=== PATIENT | male | born 1965 | race Caucasian/White ===

== ENCOUNTER 2020-10-12 10:23 | Day surgery (SDC) | payer OTHER ==
[~2020-10-12] VITALS: Ht 180.3 cm; Wt 136.3 kg
[~2020-10-12 10:23] MED LIST: HYDROmorphone 2 MG/ML VIAL IVP PRN; IV RINGERS,LACTATED 1000ML 1,000 ML IV SCH; MORPHINE SULFATE 2 MG/ML VIAL. IVP PRN; PROCHLORPERAZINE 10 MG/2 ML VIAL. IVP PRN; ceFAZolin SODIUM 3 GM in IV DEXTROSE 5% 100ML 100 ML IV PRN; fentaNYL PF VIAL 100 MCG/2 ML VIAL IVP PRN
[2020-10-12] MEDS ORDERED: LOSA1TAB25 PO (10:44)
[2020-10-12] MEDS ORDERED: MELO7.5T29 PO (10:44)
[2020-10-12] MEDS ORDERED: OMEP40CA7 PO (10:44)
[2020-10-12 10:46] VITALS: BP 160/96
[2020-10-12] MEDS ORDERED: fentaNYL PF VIAL 100 MCG/2 ML VIAL ONE ×2 (12:39→14:06)
[2020-10-12] MEDS ORDERED: HYDR-2765 PO (12:39)
[2020-10-12] MEDS ORDERED: MIDAZOLAM HCL/PF 2 MG/2 ML VIAL. ONE (12:39)
--- NOTE | 2020-10-12 12:41 | DISCH ---
DISCHARGE INSTRUCTIONS Condition on Discharge Condition on Discharge: Stable Activity After Discharge Activity Instructions for Disc: Progressive ambulation Weight Bearing Status after Di: As tolerated Diet after Discharge Diet after Discharge: Regular Wound Incision Care Wound/Incision Care: Ice to area for comfort, Change dressing (Remove dressing in 2 days may then shower no soaking until sutures removed) Contacting the after DC Call your doctor for: Concerns you may have Follow-Up Follow up with: Dr. Seo or Siva 7 to 10 days CAROLINA SEO MD Oct 12, 2020 12:41
[2020-10-12] MEDS ORDERED: BUPIVACAINE-EPI 0.5% 30 ML VIAL KIT. ONE (12:43)
[2020-10-12] MEDS ORDERED: ONDANSETRON PF 4 MG/2 ML VIAL. ONE (13:25)
[2020-10-12] MEDS ORDERED: PROPOFOL 10 MG/ML (20ML) VIAL. IV ONE (13:25)
[2020-10-12] MEDS ORDERED: DEXAMETHASONE SOD PHOS 4 MG/ML VIAL ONE (13:25)
[2020-10-12] MEDS ORDERED: LIDOCAINE 2% PF 5 ML VIAL. ONE (13:25)
[2020-10-12] MEDS ORDERED: SEVOFLURANE 31 TO 60 MINUTES. IH ONE (13:26)
[2020-10-12] MEDS ORDERED: KETOROLAC 30 MG/ML VIAL. ONE (13:27)
[2020-10-12] MEDS: fentaNYL PF VIAL 100 MCG/2 ML VIAL IVP PRN ×2 (14:08→14:16)
[2020-10-12] MEDS ORDERED: HYDROcodone/APAP 7.5/325MG 1 TAB TABLET PO ONE (14:15)
[2020-10-12 14:50] VITALS: BP 153/86
--- NOTE | 2020-10-12 15:00 | PDOC4 ---
Operative Note Operative Note Date of surgery: 10/12/2020 Preoperative diagnosis: Right knee medial meniscus tear and some chondromalacia medial compartment Postoperative diagnosis: Same with posterior horn displaceable medial meniscus tear and free edge fraying of the lateral meniscus and chondral flap tear medial femoral condyle Operative procedure: Right knee arthroscopy partial medial and lateral meniscectomies chondroplasty medial femoral condyle Surgeon: Rayray Anesthesia: General Estimated blood loss: 5 cc Complications: None Operative indications: Please see my preoperative orthopedic clinic note for detailed operative indications and note that we had talked about the structure and function of the meniscus the current mechanical symptoms that he is having and the possibility of operative treatment of excising the unstable portion of the meniscus to address the mechanical symptoms. I emphasized that I cannot undo any degenerative type changes over the symptoms that go along with those and those would have to be treated symptomatically later with medications injection or other alternatives. We talked through the possibility of infection nerve or blood vessel damage continued pain medical or other anesthetic compl ications including blood clots among others all his questions were answered he wishes to proceed with surgical evaluation and treatment Operative text: Patient was identified procedure verified patient placed in the supine position on the operating table. After adequate amounts of general anesthesia were administered the right lower extremity was prepped and draped in standard sterile fashion with a thigh tourniquet. After timeout was performed patient procedure identified and verified the right lower extremity was exsanguinated by Esmarch bandage tourniquet inflated to 350 mmHg a lateral portal was established medial portal established using spinal needle localization and the knee joint was systematically examined. He was found to have a displaceable tear of the posterior horn root area of the medial meniscus which was trimmed back to stable tissue using the arthroscopic punch and shaver. Likewise had a chondral flap tear of the weightbearing surface of the medial femoral condyle that was trimmed back to stable tissue and was not noted to be full-thickness in nature. ACL was probed and found to be intact. He did have free edge tearing of the lateral meniscus which was trimmed back to stable tissue using arthroscopic punch and shaver as well lateral compartment cartilage surfaces were in good condition. 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 The knee was drained of arthroscopic fluid portals closed with nylon suture portal and fat pad areas were injected with half percent Marcaine sterile dressings were applied patient was returned to recovery room stable condition having tolerated procedure well CAROLINA CASTRO MD Oct 12, 2020 15:00
== END 2020-10-12 15:00 | disposition home or self-care (01) ==
LOC: SURG 10:23
PROVIDERS: ATTEND Orthopaedic Surgery
DX: S83.241A Other tear of medial meniscus, current injury, right knee, initial encounter (principal); S83.281A Other tear of lateral meniscus, current injury, right knee, initial encounter; M94.261 Chondromalacia, right knee; I10 Essential (primary) hypertension; M19.90 Unspecified osteoarthritis, unspecified site; E66.9 Obesity, unspecified; K21.9 Gastro-esophageal reflux disease without esophagitis; Z87.891 Personal history of nicotine dependence; Z79.899 Other long term (current) drug therapy; Z98.890 Other specified postprocedural states; Z88.8 Allergy status to other drugs, medicaments and biological substances; Z72.89 Other problems related to lifestyle; X58.XXXA Exposure to other specified factors, initial encounter; Y93.89 Activity, other specified; Y92.89 Other specified places as the place of occurrence of the external cause; Y99.8 Other external cause status
CPT/HCPCS: 29880; A4930; J1100; J1885; J2250; J2405; J2704; J3010; A4223